=== PATIENT | female | born 1990 | race Hispanic/Latino ===

== ENCOUNTER 2016-12-09 13:30 | Outpatient (RCR) | payer OTHER | END 2016-12-22 | LOC: M PT 13:30 | PROVIDERS: ATTEND Internal Medicine | DX: M54.5 Low back pain (principal) ==

== ENCOUNTER → 2020-01-22 | Outpatient (CLI) | payer SELFPAY | LOC: M LABSMTC 09:45 | PROVIDERS: ATTEND Pediatrics | DX: Z20.828 Contact with and (suspected) exposure to other viral communicable diseases (principal) ==